=== PATIENT | female | born 1950 | race Caucasian/White ===

== ENCOUNTER 2017-07-31 11:43 | Outpatient (CLI) | payer BC ==
[2017-07-31] MEDS ORDERED: Iopamidol 370 76% 100 ML VIAL ONE (13:55)
--- NOTE | 2017-07-31 15:47 | CT ---
CT ANGIOGRAM OF THE HEAD CT ANGIOGRAM OF THE NECK: Date: 07/31/17 COMPARISON: None. HISTORY: Dizziness, syncope, hypotension, disorientation. TECHNIQUE: Serial axial CT imaging is obtained at 5 mm intervals from the vertex through the skull base without contrast. Then, serial axial CT imaging is obtained at 1.25 mm intervals from the vertex through the upper chest with IV contrast using CT angiogram protocol. Coronal and sagittal 3D reformatted imaging of the head and neck provided. FINDINGS: NONCONTRAST ENHANCED HEAD CT: There is no intracranial hemorrhage, midline shift, mass effect, or ventricular enlargement. There is atherosclerotic calcification involving bilateral cavernous carotid arteries and the distal right ve rtebral artery. CT ANGIOGRAM HEAD: The distal left vertebral artery is mildly hypoplastic. The basilar artery is normal in course and caliber. There is mild stenosis of the proximal P2 segment on the left. Bilateral posterior cerebral arteries are patent. There is a patent posterior communicating artery bilaterally. There is no saccular aneurysm, high gra de stenosis, or vascular occlusion involving the posterior circulation. There is atherosclerotic calcification involving the distal cervical segment of bilateral internal ca rotid arteries. The A1 segment, M1 segment, MCA bifurcation, and ICA bifurcation appears unremarkable bilaterally. Di stal MAC and MCA branches appear within normal limits with no hemodynamically significant stenosis, v ascular occlusion, or saccular aneurysm involving the anterior circulation. CT ANGIOGRAM NECK: Orbits/globes appear grossly unremarkable. Bilateral parapharyngeal and retroantral fat appears unrem arkable. The parotid and submandibular glands appear unremarkable bilaterally. There is a low density nodule in the right lobe of the thyroid gland measuring approximately 1.0 cm. There is a loop recorder on the left within the subcutaneous fat. The tonsillar pillar, epiglottis, and preepiglottic fat, hyoid bone, thyroid cartilage, cricoid carti kelvin, and level of glottis appear unremarkable. The imaged lung apices are grossly unremarkable. No lymphadenopathy is seen in the neck. There is partially calcified plaque at the origin of the left subclavian artery, left common carotid artery, and innominate artery. Streak artifact limits assessment of the origin of the right subclavia n artery on the basis of venous contrast media. The origin of the right common carotid artery and bilateral vertebral arteries is unremarkable. Bilat eral vertebral arteries are patent, the right vertebral artery being dominant. There is no hemodynamically significant stenosis involving the common carotid artery, internal caroti d artery, or external carotid artery on either side. There is mild calcified plaque within the proxim al ICA bilaterally. There is multilevel cervical spine degenerative change with degenerative end plat e sclerosis and disc space narrowing, primarily at C4-5, C5-6, and C6-7. No acute osseous abnormality. IMPRESSION: 1. No intracranial hemorrhage, midline shift, or mass effect. 2. No hemodynamically significant stenosis, vascular occlusion, or saccular aneurysm on CT angiogram head. 3. No hemodynamically significant stenosis within the vertebral or carotid system on either side on CT angiogram neck. 4. Low density nodule within right lobe of thyroid gland, recommend follow-up thyroid ultrasound. POS: BARBARA
== END 2017-07-31 11:44 | disposition home or self-care (01) ==
LOC: EEG 11:43
PROVIDERS: ATTEND Psychiatry & Neurology Neurology
DX: R42 Dizziness and giddiness (principal); R55 Syncope and collapse
CPT/HCPCS: 70496; 70498; 95816

== ENCOUNTER 2019-04-26 14:00 | Outpatient (CLI) | payer BC | END 2019-04-26 14:01 | disposition home or self-care (01) | LOC: SLEEPLAB 14:00 | PROVIDERS: ATTEND Family Medicine | DX: G47.9 Sleep disorder, unspecified (principal); G47.33 Obstructive sleep apnea (adult) (pediatric); G47.31 Primary central sleep apnea | CPT/HCPCS: 95806 ==

== ENCOUNTER 2019-11-17 20:30 | Outpatient (CLI) | payer BC | END 2019-11-17 20:31 | disposition home or self-care (01) | LOC: SLEEPLAB 20:30 → MERGE 20:30 → SLEEPLAB 20:31 | PROVIDERS: ATTEND Family Medicine | DX: G47.33 Obstructive sleep apnea (adult) (pediatric) (principal); G47.10 Hypersomnia, unspecified; I95.9 Hypotension, unspecified; G47.52 REM sleep behavior disorder | CPT/HCPCS: 95811 ==

== ENCOUNTER 2020-09-28 10:10 | Outpatient (CLI) | payer BC ==
--- NOTE | 2020-09-28 10:59 | MMO ---
Bilateral MAMMO Bilat Screen [facility]. CLINICAL HISTORY: Patient is 70 years old and is seen for screening. The patient has no family history of breast cancer. The patient has no personal history of cancer. The patient has a history of left Excisional Biopsy in 1977 - benign. VIEWS: The views performed were: bilateral craniocaudal with tomosynthesis and bilateral mediolateral oblique with tomosynthesis. FILMS COMPARED: The present examination has been compared to prior imaging studies performed at [facility] on 09/16/2016, 09/21/2017, 09/24/2018 and 09/26/2019. This study has been interpreted with the assistance of computer-aided detection. MAMMOGRAM FINDINGS: There are scattered fibroglandular densities. There are no suspicious masses, suspicious calcifications, or new areas of architectural distortion. IMPRESSION: THERE IS NO MAMMOGRAPHIC EVIDENCE OF MALIGNANCY. A ROUTINE FOLLOW-UP MAMMOGRAM IN 1 YEAR IS RECOMMENDED. THE RESULTS OF THIS EXAM WERE SENT TO THE PATIENT. ACR BI-RADS Category 1 - Negative MAMMOGRAPHY NOTE: 1. A negative mammogram report should not delay a biopsy if a dominant of clinically suspicious mass is present. 2. Approximately 10% to 15% of breast cancers are not detected by mammography. 3. Adenosis and dense breasts may obscure an underlying neoplasm. Reported by: JENNIFER ALMEIDA MD Electonically Signed: [id number]
== END 2020-09-28 10:11 | disposition home or self-care (01) ==
LOC: BICMAMMO 10:10
PROVIDERS: ATTEND Obstetrics & Gynecology
DX: Z12.31 Encounter for screening mammogram for malignant neoplasm of breast (principal); Z91.89 Other specified personal risk factors, not elsewhere classified
CPT/HCPCS: 77063; 77067

== ENCOUNTER 2021-06-10 08:07 | Outpatient (CLI) | payer BC | END 2021-06-10 08:08 | disposition home or self-care (01) | LOC: PET 08:07 | PROVIDERS: ATTEND Family Medicine | DX: R06.00 Dyspnea, unspecified (principal); I70.0 Atherosclerosis of aorta; I70.8 Atherosclerosis of other arteries; E27.8 Other specified disorders of adrenal gland; K57.30 Diverticulosis of large intestine without perforation or abscess without bleeding | CPT/HCPCS: 78816; A9552 ==

== ENCOUNTER 2021-10-11 12:49 | Outpatient (CLI) | payer BC | END 2021-10-11 12:50 | disposition home or self-care (01) | LOC: BICMAMMO 12:49 | PROVIDERS: ATTEND Family Medicine | DX: Z12.31 Encounter for screening mammogram for malignant neoplasm of breast (principal); Z91.89 Other specified personal risk factors, not elsewhere classified | CPT/HCPCS: 77063; 77067 ==

== ENCOUNTER 2022-04-26 10:30 | Outpatient (CLI) | payer BC | END 2022-04-26 10:31 | disposition home or self-care (01) | LOC: BICMAMMO 10:30 | PROVIDERS: ATTEND Family Medicine | DX: Z13.820 Encounter for screening for osteoporosis (principal); N95.9 Unspecified menopausal and perimenopausal disorder; M81.0 Age-related osteoporosis without current pathological fracture | CPT/HCPCS: 77080 ==

== ENCOUNTER 2022-10-28 10:09 | Outpatient (CLI) | payer BC | END 2022-10-28 10:10 | disposition home or self-care (01) | LOC: BICMAMMO 10:09 | PROVIDERS: ATTEND Obstetrics & Gynecology | DX: Z12.31 Encounter for screening mammogram for malignant neoplasm of breast (principal); Z91.89 Other specified personal risk factors, not elsewhere classified | CPT/HCPCS: 77063; 77067 ==

== ENCOUNTER 2022-11-18 11:57 | Emergency (ER) | payer OTHER, BC ==
[2022-11-18] MEDS ORDERED: Boostrix 0.5 ML (Tdap) VIAL (>/=7 yrs of age) ONE (15:34)
[2022-11-18] MEDS ORDERED: Lidocaine 1% PF 5 ML VIAL ONE (16:41)
[2022-11-18] MEDS ORDERED: CEFAZOLIN 2 GM VIAL ONE (17:07)
[2022-11-18] MEDS ORDERED: Lidocaine 1% w/Epinephrine 1:100K 20 ML VIAL ONE (18:02)
== END 2022-11-18 18:44 | disposition home or self-care (01) ==
LOC: ERS 11:57
DX: S68.616A Complete traumatic transphalangeal amputation of right little finger, initial encounter (principal); E78.5 Hyperlipidemia, unspecified; W01.118A Fall on same level from slipping, tripping and stumbling with subsequent striking against other sharp object, initial encounter; Z23 Encounter for immunization
CPT/HCPCS: 12001; 90471; 90715; 96372